=== PATIENT | male | born 1990 | race Caucasian/White ===

== ENCOUNTER 2018-03-09 03:18 | Emergency (ER) | payer OTHER ==
[2018-03-09 03:23] VITALS: BP 130/82; PULSE 134; RESP 20; TEMP 99.3
--- NOTE | 2018-03-09 03:36 | ED ---
Medical Clearance HPI - General Chief complaint: Medical Clearance Stated complaint: overdose-shelter clearance Time Seen by Provider: 03/09/18 03:35 Source: patient, police, RN notes reviewed Mode of arrival: ambulatory Limitations: no limitations - History of Present Illness Initial comments: This a 27-year-old male presents emergency for shelter clearance. Patient states apparently used heroin earlier today. He does use on a regular basis has use for several years. Patient has had no loss consciousness there is no evidence of overdose. Patient complains of chronic abdominal issues states that he has hepatitis C. He states there is no acute changes. Patient denies headache, dizziness. Patient is anxious, tearful. Patient denies any areas of bleeding denies any chest pain or shortness of breath. Home medications: Home Medications Medication Instructions Recorded Confirmed OLANZapine [Olanzapine] 10 mg PO HS 06/17/16 06/17/16 buPROPion XL [Wellbutrin Xl] 450 mg PO DAILY 06/22/16 06/22/16 Previous Rx's Medication Instructions Recorded Aspirin 325 mg PO DAILY #30 tab 06/16/16 Gabapentin [Neurontin] 300 mg PO TID #90 cap 06/22/16 Nicotine 21Mg/24Hr Patch [Habitrol] 1 patch TRANSDERM DAILY #30 patch 06/22/16 clonazePAM [KlonoPIN] 1 mg PO QID #30 tab 06/22/16 OLANZapine [ZyPREXA] 10 mg PO HS #7 tab 08/28/16 Ondansetron Odt [Zofran Odt] 4 mg PO Q8HR PRN #14 tab 08/28/16 cloNIDine HCL [Catapres] 0.1 mg PO BID #14 tab 08/28/16 clonazePAM [KlonoPIN] 1 mg PO BID #14 tablet 08/28/16 Allergies/Adverse reactions: Allergies Allergy/AdvReac Type Severity Reaction Status Date / Time No Known Allergies Allergy Verified 03/09/18 03:23 Review of Systems ROS Statement: Those systems with pertinent positive or pertinent negative responses have been documented in the HPI. ROS Other: All systems not noted in ROS Statement are negative. Past Medical History Past Medical History: Asthma, Seizure Disorder Additional Past Medical History / Comment(s): hep-c, Hx of heroin and benzo abuse in remission , "heartburn", anxiety/depression, concussions. History of Any Multi-Drug Resistant Organisms: MRSA Date of last positivie culture/infection: 12/13 MDRO Source:: Left ear Past Surgical History: Adenoidectomy, Orthopedic Surgery, Tonsillectomy Additional Past Surgical History / Comment(s): lt Hip surgery has screws. Past Anesthesia/Blood Transfusion Reactions: No Reported Reaction Past Psychological History: Anxiety, Bipolar, Depression, PTSD Smoking Status: Current every day smoker Past Alcohol Use History: None Reported Past Drug Use History: Heroin - Past Family History Father History Unknown: Yes Additional Family Medical History / Comment(s): idon't talk to my dad. Mother History Unknown: Yes Additional Family Medical History / Comment(s): mom is healthy General Exam Limitations: no limitations General appearance: alert, in no apparent distress Head exam: Present: atraumatic, normocephalic, normal inspection Eye exam: Present: normal appearance, PERRL, EOMI. Absent: scleral icterus, conjunctival injection, periorbital swelling ENT exam: Present: normal exam, normal oropharynx, mucous membranes moist Neck exam: Present: normal inspection. Absent: tenderness, meningismus, lymphadenopathy Respiratory exam: Present: normal lung sounds bilaterally. Absent: respiratory distress, wheezes, rales, rhonchi, stridor Cardiovascular Exam: Present: normal rhythm, tachycardia (Patient was tachycardic on triage heart rate 102 upon exam patient is tearful and anxious) , normal heart sounds. Absent: systolic murmur, diastolic murmur, rubs, gallop , clicks GI/Abdominal exam: Present: soft, normal bowel sounds. Absent: distended, tenderness, guarding, rebound, rigid Neurological exam: Present: alert, oriented X3, CN II-XII intact, reflexes normal. Absent: motor sensory deficit Psychiatric exam: Present: anxious Skin exam: Present: warm, dry, intact, normal color. Absent: rash Course Vital Signs 03/09/18 03:20 Temperature 99.3 F Pulse Rate 134 H Respiratory 20 Rate Blood Pressure 130/82 O2 Sat by Pulse 94 L Oximetry Medical Decision Making - Medical Decision Making 27-year-old male presented for medical clearance. Patient has chronic abdominal issues there is no acute changes. Patient did use heroin today patient is awake alert and oriented 3 patient has not nodding off there is no concerns for heroin overdose at this time. Patient we discharged. Disposition Clinical Impression: Medical clearance for incarceration, Heroin addiction Disposition: HOME SELF-CARE Condition: Stable Instructions: Narcotic Abuse (ED) Additional Instructions: Please return to the Emergency Department if symptoms worsen or any other concerns. Referrals: None,Stated [Primary Care Provider] - 1-2 days Time of Disposition: 03:36
== END 2018-03-09 03:42 | disposition home or self-care (01) ==
LOC: EC 03:18
DX: F11.20 Opioid dependence, uncomplicated (principal); F31.9 Bipolar disorder, unspecified; R00.0 Tachycardia, unspecified; F17.200 Nicotine dependence, unspecified, uncomplicated; Z02.89 Encounter for other administrative examinations; Z86.14 Personal history of Methicillin resistant Staphylococcus aureus infection; Z86.19 Personal history of other infectious and parasitic diseases; Z79.899 Other long term (current) drug therapy
CPT/HCPCS: 99282